=== PATIENT | female | born 1975 | race Caucasian/White ===

== ENCOUNTER → 2017-01-27 | Outpatient (CLI) | payer OTHER | LOC: FIMAGING 08:29 | PROVIDERS: ATTEND Obstetrics & Gynecology | DX: Z12.31 Encounter for screening mammogram for malignant neoplasm of breast (principal) | CPT/HCPCS: G0202 ==

== ENCOUNTER 2018-03-02 08:43 | Day surgery (SDC) | payer OTHER ==
[2018-03-02] MEDS ORDERED: DOXYCYCLINE HYCLATE 100 MG CAP/TAB PO ONE ×2 (09:04→09:10)
--- NOTE | 2018-03-02 09:18 | PDGENHP ---
History & Physical Chief Complaint: Missed AB at 9 wks History of Present Illness: 43 yo at approximately 9 wks BLAKE presents today for scheduled D&C. Viability US performed in the office 02/27/18 showed no FHR with CRL measuring 9w0d. Met with Maria Teresa in the office the next day and discussed options - she'd like D&C. Will do under US guidance. Declines Anora testing on POC's. Feels like they won't be trying again. H/o in 2014 with RPOC's and D&C for that. Otherwise two recent MABs tx'd with misoprostol - Winter 2016 and just this Spring 2017. Blood Type O pos Pertinent Past, Social, Family History: H/o x 1, D&C for RPOC following that delivery, SAB (miso) x 2, AMA Relevant Physical Exam: NAD, RRR, LCTAB. Bedside US prior confirms no FHR, no motion. Plan Plan: Preop: D&C under US-guidance - Routine preop orders, Type & Screen STAT. - Doxycycline 100mg PO x 1 PREOP, 200mg PO x 1 PACU before dc. - No testing on POC's, routine path. JOSE
[2018-03-02] MEDS ORDERED: ALBUTEROL 3 ML DEYVIAL IH PRN (09:35)
[2018-03-02] MEDS ORDERED: ONDANSETRON 4 MG/2 ML VIAL IVP PRN (09:35)
[2018-03-02] MEDS ORDERED: fentaNYL 100 MCG/2 ML INJ IVP PRN (09:35)
[2018-03-02] MEDS ORDERED: ACETAMINOPHEN 500 MG TAB PO PRN (09:35)
[2018-03-02] MEDS ORDERED: MEPERIDINE 25 MG/0.5 ML AMP IVP PRN (09:35)
[2018-03-02] MEDS ORDERED: NALOXONE HCL 0.4 MG/ML INJ IVP PRN (09:35)
--- NOTE | 2018-03-02 09:35 | PDANEPAE ---
ANE Past Medical History - Pulmonary History Hx Sleep Apnea: No - Chronic Pain History Chronic Pain: No ANE Review of Systems Review of Systems: ANE Patient History - Allergies Allergies/Adverse Reactions: No Known Allergies Allergy (Unverified 03/02/18 09:33) - Home Medications Home Medications: Vit27&Calcium/Iron/FA [] 1 tab PO DAILY 09/09/14 [Last Taken ] - Smoking Hx Smoking Status: Never smoked ANE Labs/Vital Signs - Vital Signs Height: 173.99 cm Weight: 65.771 kg ANE Physical Exam - Airway Neck exam: FROM Mallampati Score: Class 2 Mouth exam: normal dental/mouth exam - Pulmonary Pulmonary: no respiratory distress - Cardiovascular Cardiovascular: regular rate and rhythym - ASA Status ASA Status: II ANE Anesthesia Plan Total IV Anesthesia: Yes
[2018-03-02] MEDS ORDERED: fentaNYL 100 MCG/2 ML INJ ONE (09:37)
[2018-03-02] MEDS ORDERED: PROPOFOL/EMULSION 500 MG/50 ML BOTTLE IV ONE (09:37)
[2018-03-02] MEDS ORDERED: MIDAZOLAM 2 MG/2 ML VIAL ONE (09:37)
[2018-03-02] MEDS ORDERED: DEXAMETHASONE 4 MG/ML VIAL ONE ×2 (09:47)
[2018-03-02] MEDS ORDERED: KETOROLAC 30 MG/1 ML SDV ONE (09:47)
[2018-03-02] MEDS ORDERED: METOCLOPRAMIDE 10 MG/2 ML VIAL ONE (09:47)
--- NOTE | 2018-03-02 11:01 | POSTANESTH ---
Post Anesthetic Evaluation Cardiovascular Status: Similar to Pre-Op Cond Respiratory Status: Similar to Pre-op Cond. Level of Consciousness/Mental Status: Mildly Sleepy, Arousable Pain Control: Adequate, Prn Tx Ordered Nausea/Vomiting Control: Adequate, Prn Tx Ordered Complications Possibly Related to Anesthesia: None Noted
[2018-03-02 12:28] VITALS: BP 98/67
== END 2018-03-02 12:59 | disposition home or self-care (01) ==
LOC: FSGY 08:43 → FOBOP 12:59
PROVIDERS: ATTEND Obstetrics & Gynecology
PROC: 10D17ZZ Extraction of Products of Conception, Retained, Via Natural or Artificial Opening (ICD-10-PCS; principal; 2018-03-02)
DX: O02.1 Missed abortion (principal); Z23 Encounter for immunization
CPT/HCPCS: G0008; J1100; J1885; J2250; J2704; J2765; J3010